=== PATIENT | female | born 1975 | race Caucasian/White ===

== ENCOUNTER 2020-12-21 08:15 | Emergency (ER) | payer BC ==
[~2020-12-21] VITALS: Ht 160 cm; Wt 60.1 kg
[2020-12-21 10:10] VITALS: BP 110/68
== END 2020-12-21 11:41 | disposition home or self-care (01) ==
LOC: ER 08:16
DX: R07.89 Other chest pain (principal); Z88.1 Allergy status to other antibiotic agents
CPT/HCPCS: 71045; 93005; 99283